=== PATIENT | male | born 2000 | race Caucasian/White ===

== ENCOUNTER 2025-02-12 13:00 | Emergency (ER) | payer OTHER, SELFPAY ==
[2025-02-12 14:33] LABS: Hematocrit 41.2 % (39.0-52.0); Hemoglobin 13.6 g/dL (13.0-18.0); Mean Corp Hgb Conc. 33.0 g/dL (33.0-37.0); Mean Corpuscular Volume 86.4 fL (80.0-94.0); Nucleated Red Blood Cells % 0 % (-); Platelet Count 305 10^3/uL (130-400); Red Cell Dist. Width 12.5 % (11.5-14.5)
[2025-02-12 14:47] LABS: ALT (SGPT) 26 U/L (0-50); AST (SGOT) 24 U/L (17-59); Albumin 4.4 g/dl (3.5-5.0); Alkaline Phosphatase 48 U/L (38-126); Blood Urea Nitrogen 19 mg/dl (9-20); Calcium 10.1 mg/dl (8.4-10.2); Carbon Dioxide 27 mmol/L (22-30); Chloride 107 mmol/L (98-107); Estimated Creatinine Clearance 121 ml/min; Glucose 80 mg/dl (70-99); Potassium 4.4 mmol/L (3.5-5.1); Sodium 140 mmol/L (135-145); Total Protein 7.3 g/dl (6.3-8.2); eGFR > 60.00
[2025-02-12 14:58] LABS: Troponin I < 0.012 ng/ml
--- NOTE | 2025-02-12 15:09 | ED.GENMED ---
History of Present Illness
General
Chief Complaint: Chest Pain
Source: patient
Exam Limitations: none
Time Seen by Provider: 02/12/25 13:49
Nursing documentation reviewed up to this point in time: agreed with
History of Present Illness
History of Present Illness:
24-year-old male presenting with sharp, stabbing pain on the left side of the chest. The pain began on a Thursday and occurs while the patient is at rest, typically when at rest, not when up and around. It has not been associated with physical
activities. The episodes can last for extended periods, including a noted duration of four hours last night. The pain character is described as constant when present and exacerbates with deep breathing. The patient attempted treatment with
yyeq-kff-zgszhlp antacid medications such as Tums and Gaviscon, which provided no relief. He reports significant stress related to work, which he finds ongoing. and substantial.
Past History
Past History
ED Past Medical History: None
ED Past Surgical History: Other (. Hernia repair)
Social History
Tobacco: Non-smoker
Alcohol: Occasional
Personal: Single
Living: with family
Employment: Employed
Family History
Family History: Early CAD (States his father side of the family, grandfather, uncles had cardiac problems since age 50)
Review of Systems
Review of Systems
Allergies reviewed?: Yes
All Other Systems: ROS reviewed and negative except as documented in HPI and ROS
Cardiac: Denies diaphoresis or palpitations
ABD/GI: Denies abdominal pain or nausea
Phy Exam
Physical Exam
Physical Exam:
GENERAL: No acute distress. A&Ox3.
CONSTITUTIONAL: Afebrile.
EYES: clear, conjunctivae normal
ENMT: moist mucus membranes, Pharynx nl
RESPIRATORY: Regular respirations, nonlabored, lungs clear.
CARDIOVASCULAR: Regular rate and rhythm, no murmurs, no rubs.
GI: Soft, nontender, normal BS
MUSCULOSKELETAL: Mild tenderness to palpate over the left pectoral area. moves with ease. Well perfused.
SKIN: Warm, dry, pink
PSYCH: Normal mood and affect. Well kept, interactive and appropriate
NEUROLOGIC: Awake, alert and oriented. No focal neurological deficits
Scores
Heart Score for Chest Pain Patients
STEMI patient?: Not applicable
Course
Orders/Labs/Results
Orders:
Orders
02/12/25 13:03
Electrocardiogram (*1) Urgent
Reason for Study: Chest Pain
EKG- Treatment ONCE
02/12/25 14:10
CR Chest - 2 Views Urgent
Comment:
Reason For Exam: L chest pain
02/12/25 14:21
Complete Blood Count/With Diff Urgent
Comprehensive Metabolic Panel Urgent
Troponin I Urgent
Abnormal Lab Results
02/12/25
14:21
MPV 10.7 H fL
(7.4-10.4)
02/12/25 14:21
02/12/25 14:21
Vital Signs
Initial and Last Documented VS:
Initial Vital Signs
Temp Pulse Resp BP Pulse Ox
98.5 F 63 16 121/86 98
02/12/25 13:07 02/12/25 13:07 02/12/25 13:07 02/12/25 13:07 02/12/25 13:07
Last Documented Vital Signs
Temp Pulse Resp BP Pulse Ox
98.5 F 57 18 130/81 98
02/12/25 13:07 02/12/25 15:56 02/12/25 15:56 02/12/25 15:56 02/12/25 15:56
MDM/Problems Addressed
Differential Diagnosis Includes:
Costochondritis, GERD, anxiety, musculoskeletal chest pain, pleuritis, [place]
MDM/Problems Addressed:
24-year-old male presenting with sharp, stabbing pain on the left side of the chest. The pain began on a Thursday and occurs while the patient is at rest, typically when at rest, not when up and around. It has not been associated with physical
activities. The episodes can last for extended periods, including a noted duration of four hours last night. The pain character is described as constant when present and exacerbates with deep breathing. The patient attempted treatment with
dylt-nho-sypbouc antacid medications such as Tums and Gaviscon, which provided no relief. He reports significant stress related to work, which he finds ongoing. and substantial.
EKG: Sinus bradycardia with a heart rate of 59 otherwise normal
3:15 PM:
CBC normal
CMP normal
Troponin normal
Chest x-ray normal
Pain is not always here so doubt pleurisy or costochondritis could be GERD or musculoskeletal pain
No indication of cardiac etiology
Plan: Reassured patient, ibuprofen may help, Avoid any activity that strained the chest muscle. follow-up with PCP if symptoms continue past another week.
*Pulse Oximetry
SaO2: 100
Oxygen Mode of Delivery: Room air
Patient hypoxic: no
*EKG
EKG Intrepretation Date: 02/12/25
Interpretation: normal
Heart Rate: 59
Rate: bradycardiac
Rhythm: sinus
Polebridge: normal axis
Interval: normal interval
QRS Pattern: normal QRS
Ischemia: no ischemia
*Critical Care Note
Total Time (30-74mins, 75-104mins- exclusive of procedures): Not Applicable
ED Attending Note
-
Portions of this chart may have been created with voice recognition software.� Occasional wrong word or��sound alike� substitutions may have occurred due to the inherent limitations of voice recognition software.
Discharge Plan
Departure
Patient Disposition: Home (Routine Discharge)
Date of Disposition: 02/12/25
Time of Disposition: 15:19
Patient with high blood pressure during this ER visit?: No
Condition: Good
Discharge Problem:
Atypical chest pain
Instructions: Chest Pain That Is Not Caused by the Heart (DC), Acid Reflux and GERD in Adults (DC), Costochondritis (DC)
Prescriptions:
No Action
No Current Medications
0
Referrals:
[facility] [Other] - Next open appointment
UNKNOWN - PT DOES,NOT KNOW [Family Provider]
Activity Restrictions/Additional Instructions:
As we discussed, nothing worrisome in your workup here today, specifically no sign of injury to your heart or heart attack.
This may be musculoskeletal pain, costochondritis in which case ibuprofen 600 mg, with food, every 6 hours for the next 2 to 3 days may help
If it is more of a reflux pain you may try Pepcid 20 mg daily for the next week or 2 and see if that helps.
Contact [facility] and may an appointment so you have a primary healthcare provider.
Interventions
Interventions:
*Risk Screen - Suicide Last Done: 02/12/25 13:08
*General Assessment Last Done: 02/12/25 13:31
*Neglect/Abuse Screening Last Done: 02/12/25 13:08
*ED- Fall Risk Assessment Last Done: 02/12/25 13:31
*ED COVID-19 Vaccine History Last Done: 02/12/25 13:31
*Nursing Disposition Last Done: 02/12/25 15:57
ED- Cardiac Assessment Last Done: 02/12/25 13:32
Discharge Date and Time
Discharge Date/Time: 02/12/25 15:57
Print Language: HEBREW
== END 2025-02-12 15:57 | disposition home or self-care (01) ==
LOC: EMR 13:00
PROVIDERS: Registered Nurse; EMERGENCY PHYSICIAN Student in an Organized Health Care Education/Training Program
DX: R07.89 Other chest pain (principal)
CPT/HCPCS: 99285; 71046; 80053; 84484; 85025; 93005